=== PATIENT | female | born 1965 | race Caucasian/White ===

== ENCOUNTER 2018-06-27 06:50 | Day surgery (SDC) | payer OTHER ==
[2018-06-26 12:33] LABS: BILIRUBIN,URINE NEGATIVE (NEGATIVE); BLOOD, URINE 2+ (NEGATIVE); CLARITY/URINE CLEAR (CLEAR); COLOR,URINE YELLOW (YELLOW); GLUCOSE,URINE NEGATIVE (NEGATIVE); KETONES,URINE NEGATIVE (NEGATIVE); LEUKOCYTE ESTERASE ,URINE NEGATIVE (NEGATIVE); NITRITE, URINE NEGATIVE (NEGATIVE); PH,URINE 5.5 (5.0-8.0); PROTEIN URINE NEGATIVE (NEGATIVE); UROBILINOGEN,URINE 0.2 (0.2-1.0)
[2018-06-26 12:36] LABS: BASOPHILS % (AUTO) 0.7 % (0.0-2.0); EOSINOPHILS # (AUTO) 0.1 K/uL (0.0-0.4); EOSINOPHILS % (AUTO) 1.8 % (0.0-4.0); HEMATOCRIT 38.4 % (36-48); HEMOGLOBIN 12.3 g/dL (12.0-16.0); LYMPHOCYTES # (AUTO) 1.5 K/uL (1.0-5.5); LYMPHOCYTES % (AUTO) 24.8 % (20.5-51.5); MEAN CORPUSCULAR HEMOGLOBIN 26 pg (27-31); MEAN CORPUSCULAR HGB CONC 32 % (32-36); MEAN CORPUSCULAR VOLUME 82 fL (79.0-98.0); MONOCYTES # (AUTO) 0.5 K/uL (0.0-1.0); NEUTROPHILS % (AUTO) 64.7 % (40.0-70.0); PLATELET COUNT (AUTO) 347 K/uL (130-430); RED CELL DISTRIBUTION WIDTH 21.2 % (9.0-15.0); WHITE BLOOD COUNT (AUTO) 6.2 K/uL (4.8-10.8)
[2018-06-26 12:39] LABS: HCG,QUAL RESULT NEGATIVE (NEGATIVE)
[2018-06-26 12:52] LABS: BACTERIA,URINE FEW /HPF (None Seen); RBC,URINE 0-3 /HPF (0-3); WBC,URINE 0-3 /HPF (0-3)
[2018-06-26 12:53] LABS: MUCUS,URINE 1+ /LPF (None Seen)
[2018-06-26 12:56] LABS: ALBUMIN 3.6 g/dL (3.4-4.8); CALCIUM 9.1 mg/dL (8.4-11.0); CREATININE 0.69 mg/dL (0.55-1.30); POTASSIUM 3.7 mmol/L (3.5-5.1); TOTAL BILIRUBIN 0.9 mg/dL (0.0-1.0)
[2018-06-26 13:09] LABS: INR 0.9 (0.8-1.2)
[2018-06-26 16:40] LABS: PROTHROMBIN TIME 9.3 SECS (9.5-12.5)
[~2018-06-27] VITALS: Ht 160 cm; Wt 68.0 kg
[2018-06-27] MEDS ORDERED: CEFAZOLIN SOD 2 GM in D5W 50 ML IV ONE (07:00)
[2018-06-27] MEDS ORDERED: ONDANSETRON HCL 4 MG/2 ML VIAL IVP PRN (08:00)
[2018-06-27] MEDS ORDERED: fentaNYL CITRATE/PF 100 MCG/2 ML AMP IVP PRN ×2 (08:00)
[2018-06-27] MEDS ORDERED: KETOROLAC TROMETHAMINE 30 MG VIAL IVP PRN (08:00)
[2018-06-27] MEDS ORDERED: EYE OP ONE (08:06)
[2018-06-27] MEDS ORDERED: SEVOFLURANE 15 MIN GAS INH ONE (08:06)
[2018-06-27] MEDS ORDERED: KETOROLAC TROMETHAMINE 30 MG VIAL IVP ONE (08:06)
[2018-06-27] MEDS ORDERED: PHENYLEPHRINE HCL 2.5% OP ONE (08:06)
[2018-06-27] MEDS ORDERED: NS 1000 ML IV.SOLN IV ONE (08:06)
[2018-06-27] MEDS ORDERED: LR 1,000 ML IV.SOLN IV ONE (08:06)
[2018-06-27] MEDS ORDERED: fentaNYL CITRATE/PF 100 MCG/2 ML AMP IVP ONE (08:06)
[2018-06-27] MEDS ORDERED: ONDANSETRON HCL 4 MG/2 ML VIAL IVP ONE (08:06)
[2018-06-27] MEDS ORDERED: MIDAZOLAM HCL 5 MG/5 ML VIAL IVP ONE (08:06)
[2018-06-27] MEDS ORDERED: PROMETHAZINE INJ.Non-Formulary 25 MG/ML AMP IM PRN (09:30)
[2018-06-27] MEDS ORDERED: HYDROcodone/ACETAMIN 5-325 MG TAB (NORCO/ VICODIN) PO PRN (09:30)
[2018-06-27 10:53] VITALS: BP_SYST 161
== END 2018-06-27 11:00 | disposition home or self-care (01) ==
LOC: SMU 06:50 → SDS 06:50
PROVIDERS: ATTEND Obstetrics & Gynecology Gynecology
DX: N84.0 Polyp of corpus uteri (principal); N92.0 Excessive and frequent menstruation with regular cycle; Z79.899 Other long term (current) drug therapy; Z98.890 Other specified postprocedural states; Z82.49 Family history of ischemic heart disease and other diseases of the circulatory system; Z83.3 Family history of diabetes mellitus; Z80.3 Family history of malignant neoplasm of breast; D50.9 Iron deficiency anemia, unspecified; I10 Essential (primary) hypertension; Z79.82 Long term (current) use of aspirin
CPT/HCPCS: 36415; 58558; 71046; 80053; 81000; 84703; 85025; 85610; 85730; 86886; 86900; 86901; 88305; 93005; C1819; J0690; J1885; J2250; J2405; J3010; J7030; J7060; J7120